=== PATIENT | male | born 1975 | race Hispanic/Latino ===

== ENCOUNTER 2021-11-14 11:27 | Inpatient (IN) | payer BC ==
[~2021-11-14] VITALS: Ht 177.8 cm; Wt 81.6 kg
[2021-11-14] MEDS ORDERED: TETANUS/DIPHTHERIA TOX ADULT 0.5 ML SYR IM ONE (12:00)
[2021-11-14] MEDS ORDERED: LIDOCAINE HCL 1% LOCAL INJ 20 ML VIAL ONE (12:40)
[2021-11-14] MEDS ORDERED: NEOMYCIN/POLYMYX/BACITR OINT 0.9 GM PKT ONE (12:40)
[2021-11-14] MEDS ORDERED: LIDOCAINE HCL 1% LOCAL INJ 20 ML VIAL INJ ONE (12:45)
[2021-11-14] MEDS ORDERED: NEOMYCIN/POLYMYX/BACITR OINT 0.9 GM PKT TOP ONE (12:45)
[2021-11-14] MEDS ORDERED: Morphine 4mg Syringe 4 MG/ML INJ IV PRN (14:15)
[2021-11-14] MEDS ORDERED: ONDANSETRON HCL INJ 2MG/ML 2ML 2 MG/ML VIAL IV PRN ×3 (14:15→21:45)
[2021-11-14 14:47] LABS: BASOPHILS # (AUTO) 0.1 (0.0-0.1); BASOPHILS % 0.6 % (0.0-1.0); EOSINOPHILS # (AUTO) 0.1 (0.0-0.4); EOSINOPHILS % 1.1 % (0.0-6.0); HEMATOCRIT 50.8 % (38.2-49.6); LYMPHOCYTES # (AUTO) 1.6 (1.0-3.2); LYMPHOCYTES % 12.2 % (18.0-39.1); MEAN CORPUSCULAR HEMOGLOBIN 30.1 pg (28-32); MEAN CORPUSCULAR HGB CONC 33.5 g/dL (31-35); MEAN CORPUSCULAR VOLUME 90.1 fL (81-99); MONOCYTES # (AUTO) 0.7 (0.2-0.8); MONOCYTES % 5.2 % (4.4-11.3); NEUTROPHILS # (AUTO) 10.7 (2.1-6.9); NEUTROPHILS % 80.4 % (38.7-80.0); PLATELET COUNT 285 x10e3/uL (140-360); RED BLOOD COUNT 5.64 x10e6/uL (4.3-5.7); RED CELL DISTRIBUTION WIDTH 12.7 % (11.7-14.4)
[2021-11-14 14:58] LABS: INR 0.92; PROTHROMBIN TIME 13.2 seconds (11.9-14.5)
[2021-11-14 14:59] LABS: PARTIAL THROMBOPLASTIN TIME 29.5 seconds (23.8-35.5)
[2021-11-14] MEDS ORDERED: ACETAMINOPHEN 325 MG TAB PO PRN ×2 (15:00→21:30)
[2021-11-14] MEDS ORDERED: HYDROCODONE/APAP 5MG-325MG TAB PO PRN ×2 (15:00→21:30)
[2021-11-14] MEDS ORDERED: DOCUSATE SODIUM 100 MG CAP PO PRN ×2 (15:00→21:30)
[2021-11-14] MEDS ORDERED: DIPHENHYDRAMINE HCL 25 MG CAP PO PRN ×2 (15:00→21:30)
[2021-11-14] MEDS ORDERED: ALBUTEROL/IPRATROPIUM 3 ML NEB NEB PRN ×2 (15:00→21:30)
[2021-11-14] MEDS: SODIUM CHLORIDE 0.9% 1000ML 1,000 ML IV SCH ×2 (15:00→20:42)
[2021-11-14] MEDS ORDERED: POTASSIUM CHLORIDE 20 MEQ TAB CR PO PRN ×2 (15:00→21:45)
[2021-11-14] MEDS ORDERED: BENZONATATE 100 MG CAP PO PRN ×2 (15:00→21:30)
[2021-11-14] MEDS ORDERED: DEXTROSE 50% SYRINGE 50 ML IV PRN ×2 (15:00→21:30)
[2021-11-14] MEDS ORDERED: SIMETHICONE 80 MG CHEW PO PRN ×2 (15:00→21:45)
[2021-11-14] MEDS ORDERED: MELATONIN 5 MG TABLET PO PRN ×2 (15:00→21:30)
[2021-11-14] MEDS ORDERED: HYDRALAZINE HCL 20 MG/ML VIAL IV PRN ×2 (15:00→21:30)
[2021-11-14] MEDS ORDERED: LIDOCAINE 4% PATCH TP PRN ×2 (15:00→21:30)
[2021-11-14 15:01] LABS: ALBUMIN 4.2 g/dL (3.5-5.0); ANION GAP 14.2 mmol/L (8-16); CALCIUM 9.5 mg/dL (8.4-10.2); CREATININE, SERUM 1.05 mg/dL (0.72-1.25); POTASSIUM 4.2 mmol/L (3.5-5.1)
[2021-11-14 20:00] VITALS: BP 115/67
[2021-11-14] MEDS: Morphine 4mg Syringe 4 MG/ML INJ IV PRN (20:42)
[2021-11-14 21:30] VITALS: BP 115/67
[2021-11-15] VITALS (8 sets, daily range): BP systolic 106–126; BP diastolic 67–92
[2021-11-15] MEDS: SODIUM CHLORIDE 0.9% 1000ML 1,000 ML IV SCH ×2 (05:28→18:19)
[2021-11-15] MEDS: Morphine 4mg Syringe 4 MG/ML INJ IV PRN (07:23)
[2021-11-15] MEDS ORDERED: PANTOPRAZOLE SOD 40 MG TABEC PO SCH (07:30)
[2021-11-15] MEDS: PANTOPRAZOLE SOD 40 MG TABEC PO SCH (07:30)
[2021-11-15] MEDS ORDERED: KETOROLAC TROMETHAMINE 30 MG/ML VIAL ONE (12:23)
[2021-11-15] MEDS ORDERED: PROPOFOL IV EMULSION 10 MG/ML 20 ML VIAL ONE (12:23)
[2021-11-15] MEDS ORDERED: LIDOCAINE HCL 2% LOCAL INJ 5 ML SDV VIAL INJ ONE (12:23)
[2021-11-15] MEDS ORDERED: ONDANSETRON HCL INJ 2MG/ML 2ML 2 MG/ML VIAL ONE (12:23)
[2021-11-15] MEDS ORDERED: DEXAMETHASONE SOD PHOS INJ 4 MG/ML SDV ONE (12:23)
[2021-11-15] MEDS ORDERED: SEVOFLURANE INHAL SOLN 250 ML PEN BTL ONE (12:23)
[2021-11-15] MEDS ORDERED: POVIDONE IODINE 0.05% 0.05 % ML PO ONE (12:23)
[2021-11-15] MEDS ORDERED: MIDAZOLAM HCL 2 MG/2 ML VIAL ONE (12:50)
[2021-11-15] MEDS ORDERED: FENTANYL CITRATE/PF 100MCG/2 ML INJ ONE (12:50)
[2021-11-15] MEDS ORDERED: BUPIVACAINE HCL 0.5% 10ML MPF VIAL INJ ONE (17:23)
[2021-11-15] MEDS ORDERED: LIDOCAINE HCL 1% LOCAL INJ 20 ML VIAL ONE (17:23)
[2021-11-16] VITALS: BP 109/76
[2021-11-16] MEDS: SODIUM CHLORIDE 0.9% 1000ML 1,000 ML IV SCH ×2 (00:06→06:15)
[2021-11-16] MEDS ORDERED: SODIUM CHLORIDE 0.9% 1000ML 1,000 ML ONE (00:16)
[2021-11-16 06:07] VITALS: BP 119/75
[2021-11-16 07:35] VITALS: BP 118/84
[2021-11-16 07:58] VITALS: BP 118/84
[2021-11-16] MEDS: PANTOPRAZOLE SOD 40 MG TABEC PO SCH (09:13)
[2021-11-16] MEDS ORDERED: ONDANSETRON HCL 4 MG ORAL DISINTEGRATING TAB PO PRN ×2 (11:00)
[2021-11-16 11:27] VITALS: BP 137/84
[2021-11-16] MEDS ORDERED: KEFLEX125 MG/5 M PO (13:40)
== END 2021-11-16 14:22 | disposition home or self-care (01) | DRG 906 ==
LOC: ER 11:54 → MED/SURG 14:09 → ER 16:29
PROVIDERS: ADMIT Internal Medicine; ATTEND Internal Medicine
PROC: 0PH Upper Bones, Insertion (ICD-10-PCS; 2021-11-15)
PROC: 0LQ80ZZ Repair Left Hand Tendon, Open Approach (ICD-10-PCS; principal; 2021-11-15 16:34)
DX: S67.02XA Crushing injury of left thumb, initial encounter (principal); S62.525B Nondisplaced fracture of distal phalanx of left thumb, initial encounter for open fracture; S66.222A Laceration of extensor muscle, fascia and tendon of left thumb at wrist and hand level, initial encounter; S62.515B Nondisplaced fracture of proximal phalanx of left thumb, initial encounter for open fracture; X58.XXXA Exposure to other specified factors, initial encounter; W20.8XXA Other cause of strike by thrown, projected or falling object, initial encounter; Z20.822 Contact with and (suspected) exposure to COVID-19
CPT/HCPCS: 36415; 80053; 85025; 85610; 85730; 90714; 99284; C1713; J0690; J1100; J1885; J2001; J2250; J2270; J2405; J2543; J3010; J7030; U0002